=== PATIENT | female | born 1970 | race Caucasian/White ===

== ENCOUNTER 2016-05-27 18:05 | Emergency (ER) | payer OTHER ==
[~2016-05-27] VITALS: Ht 172.7 cm; Wt 124.5 kg
[~2016-05-27 18:05] MED LIST: ABILIFY 15MG TA15 MG PO; BUSPAR DIVIDOSE15 MG PO; CYMBALTA 60MG60 MG PO; DESYREL 50MG50 MG PO; DILAUDID 2MG TAB2 MG PO; EFFEXOR100 MG PO; NAPROSYN500 MG PO; NEURONTIN300 MG/CAP PO; NEURONTIN600 MG/TAB PO; NORCO 325 MG-51 TAB PO; PRISTIQ 50 MG T50 MG PO; VALIUM 5MG T5 MG/TAB PO; ZOFRAN 4MG T4 MG/TAB PO
[2016-05-27 18:09] VITALS: TEMP 97.7
[2016-05-27 22:27] VITALS: BP 118/86; PULSE 66
[2016-05-27] MEDS ORDERED: PROAIR HFA0.09 MG/AC IH (22:31)
[2016-05-27] MEDS ORDERED: GEODON 20 MG20 MG PO (22:31)
[2016-05-27] MEDS ORDERED: COLACE 100100 MG/CAP PO (22:32)
[2016-05-27] MEDS ORDERED: ADDERALL10 MG PO (22:33)
[2016-05-27] MEDS ORDERED: ULTRAM 50MG TAB50 MG PO (22:33)
[2016-05-27] MEDS ORDERED: VALIUM 5MG T5 MG/TAB PO (22:37)
[2016-08-27] MEDS ORDERED: PRISTIQ100 MG PO (14:20)
[2016-08-28] MEDS ORDERED: FLOVENT 44MCG I13 GM (08:55)
== END 2016-05-27 22:45 | disposition home or self-care (01) ==
LOC: COL.ER 18:05
DX: S29.8XXA Other specified injuries of thorax, initial encounter (principal); S39.82XA Other specified injuries of lower back, initial encounter; W10.8XXA Fall (on) (from) other stairs and steps, initial encounter; Y92.098 Other place in other non-institutional residence as the place of occurrence of the external cause; Z90.710 Acquired absence of both cervix and uterus
CPT/HCPCS: J1170; J3360

== ENCOUNTER → 2016-08-27 | Outpatient (CLI) | payer OTHER ==
[~2016-08-27] VITALS: Ht 170.2 cm; Wt 111.4 kg
[~2016-08-27] MED LIST changes: +ADDERALL10 MG PO; +COLACE 100100 MG/CAP PO; +FLOVENT 44MCG I13 GM; +GEODON 20 MG20 MG PO; +PRISTIQ100 MG PO; +PROAIR HFA0.09 MG/AC IH; +ULTRAM 50MG TAB50 MG PO; +VALIUM 2MG T2 MG/TAB PO
[2016-08-27 14:23] VITALS: BP 136/90; PULSE 82
== END ==
LOC: LIGHT 07-16 13:06
DX: E66.01 Morbid (severe) obesity due to excess calories (principal); Z68.38 Body mass index [BMI] 38.0-38.9, adult; M54.89 Other dorsalgia; G47.30 Sleep apnea, unspecified; F33.9 Major depressive disorder, recurrent, unspecified; Z98.84 Bariatric surgery status

== ENCOUNTER 2016-10-06 05:01 | Emergency (ER) | payer OTHER ==
[~2016-10-06] VITALS: Ht 170.2 cm; Wt 113.6 kg
[~2016-10-06 05:01] MED LIST changes: -VALIUM 2MG T2 MG/TAB PO
[2016-10-06 05:03] VITALS: TEMP 98
[2016-10-06] MEDS ORDERED: VALIUM 2MG T2 MG/TAB PO (05:33)
[2016-10-06] MEDS ORDERED: ULTRAM 50MG TAB50 MG PO (05:33)
[2016-10-06 06:10] VITALS: BP 110/59; PULSE 57
== END 2016-10-06 06:25 | disposition home or self-care (01) ==
LOC: COL.ER 05:01
DX: M54.5 Low back pain (principal); F90.9 Attention-deficit hyperactivity disorder, unspecified type; F32.9 Major depressive disorder, single episode, unspecified; Z98.84 Bariatric surgery status
CPT/HCPCS: J1170; J1885

== ENCOUNTER 2016-11-27 22:15 | Emergency (ER) | payer OTHER ==
[~2016-11-27] VITALS: Ht 170.2 cm; Wt 111.4 kg
[~2016-11-27 22:15] MED LIST changes: +VALIUM 2MG T2 MG/TAB PO
[2016-11-27 22:20] VITALS: TEMP 97.8
[2016-11-28 00:09] VITALS: BP 108/73; PULSE 71
== END 2016-11-28 00:11 | disposition home or self-care (01) ==
LOC: COL.ER 22:15
DX: M54.5 Low back pain (principal); G89.29 Other chronic pain; R20.0 Anesthesia of skin; R26.2 Difficulty in walking, not elsewhere classified
CPT/HCPCS: J1170; J1885; J2405

== ENCOUNTER 2017-04-13 21:43 | Emergency (ER) | payer OTHER ==
[~2017-04-13] VITALS: Ht 170.2 cm; Wt 112.3 kg
[2017-04-13 21:43] VITALS: BP 135/70; PULSE 82; TEMP 97.3
== END 2017-04-13 22:55 | disposition left against medical advice (07) ==
LOC: COL.ER 21:43
DX: M62.830 Muscle spasm of back (principal); F32.9 Major depressive disorder, single episode, unspecified; F41.9 Anxiety disorder, unspecified; G47.419 Narcolepsy without cataplexy; M54.5 Low back pain; G89.29 Other chronic pain; F17.210 Nicotine dependence, cigarettes, uncomplicated; Z79.891 Long term (current) use of opiate analgesic
CPT/HCPCS: J1170; J1885; J2405

== ENCOUNTER 2017-04-13 23:28 | Emergency (ER) | payer OTHER ==
[~2017-04-13] VITALS: Ht 170.2 cm; Wt 112.3 kg
[2017-04-13 23:36] VITALS: BP 126/61; TEMP 97.6
[2017-04-14 01:01] VITALS: PULSE 72
== END 2017-04-14 01:00 | disposition home or self-care (01) ==
LOC: COL.ER 23:28
DX: M62.830 Muscle spasm of back (principal); M54.5 Low back pain; F41.9 Anxiety disorder, unspecified; F32.9 Major depressive disorder, single episode, unspecified; F17.210 Nicotine dependence, cigarettes, uncomplicated
CPT/HCPCS: J2360

== ENCOUNTER 2017-05-23 08:03 | Emergency (ER) | payer OTHER ==
[~2017-05-23] VITALS: Ht 170.2 cm; Wt 112.3 kg
[2017-05-23 08:07] VITALS: TEMP 98.5
[2017-05-23 09:44] VITALS: BP 115/75; PULSE 83
[2017-05-23] MEDS ORDERED: AMOXICILLIN875 MG PO (20:10)
[2017-05-23] MEDS ORDERED: OMNICEF 300MG300 MG PO (22:19)
== END 2017-05-23 09:50 | disposition home or self-care (01) ==
LOC: COL.ER 08:03
DX: M54.5 Low back pain (principal); M54.16 Radiculopathy, lumbar region; F17.210 Nicotine dependence, cigarettes, uncomplicated
CPT/HCPCS: J1170; J1200; J1885

== ENCOUNTER 2017-05-23 17:58 | Emergency (ER) | payer OTHER ==
[~2017-05-23] VITALS: Ht 170.2 cm; Wt 112.3 kg
[2017-05-23 18:01] VITALS: TEMP 97.8
[2017-05-23] MEDS ORDERED: AMOXICILLIN875 MG PO (20:10)
[2017-05-23 21:45] LABS: COLLECTION METHOD CLEAN CATCH
[2017-05-23 21:51] LABS: MUCOUS Present /lpf; PH 5 (5-8); SQUAMOUS EPITHELIAL 0-2 /hpf; URINE APPEARANCE Hazy; URINE BACTERIA None Seen /hpf; URINE BILIRUBIN Negative (NEGATIVE); URINE BLOOD Negative (NEGATIVE); URINE COLOR Yellow; URINE GLUCOSE Negative (NEGATIVE); URINE KETONE Negative (NEGATIVE); URINE LEUKOCYTE ESTERASE Trace (NEGATIVE); URINE NITRATE Negative (NEGATIVE); URINE PROTEIN(semi-quant) Negative (NEGATIVE); URINE RBC 0-2 /hpf; URINE UROBILINOGEN Negative (NEGATIVE)
[2017-05-23] MEDS ORDERED: OMNICEF 300MG300 MG PO (22:19)
[2017-05-23 22:56] VITALS: BP 105/71; PULSE 64
== END 2017-05-23 22:56 | disposition home or self-care (01) ==
LOC: COL.ER 17:58
PROVIDERS: Emergency Medicine
DX: N39.0 Urinary tract infection, site not specified (principal)
CPT/HCPCS: J1170; J1630; J2060; J2405

== ENCOUNTER 2017-06-07 19:41 | Emergency (ER) | payer OTHER ==
[~2017-06-07] VITALS: Ht 170.2 cm; Wt 116.8 kg
[~2017-06-07 19:41] MED LIST changes: +AMOXICILLIN875 MG PO; +OMNICEF 300MG300 MG PO
[2017-06-07 19:49] VITALS: BP 107/74; TEMP 98.5
[2017-06-07] MEDS ORDERED: TAMIFLU 75MG75 MG PO (22:02)
[2017-06-07 22:11] VITALS: PULSE 78
== END 2017-06-07 22:11 | disposition home or self-care (01) ==
LOC: COL.ER 19:41
DX: J11.1 Influenza due to unidentified influenza virus with other respiratory manifestations (principal); G89.29 Other chronic pain; M54.9 Dorsalgia, unspecified; F32.9 Major depressive disorder, single episode, unspecified; F41.9 Anxiety disorder, unspecified; F17.210 Nicotine dependence, cigarettes, uncomplicated; Z79.51 Long term (current) use of inhaled steroids

== ENCOUNTER 2017-09-11 08:30 | Emergency (ER) | payer OTHER ==
[~2017-09-11] VITALS: Ht 170.2 cm; Wt 121.2 kg
[~2017-09-11 08:30] MED LIST changes: +TAMIFLU 75MG75 MG PO
[2017-09-11 08:35] VITALS: BP 147/72; PULSE 64; TEMP 96.9
[2017-09-11] MEDS ORDERED: MOBIC 7.5MG7.5 MG PO (09:57)
== END 2017-09-11 10:29 | disposition home or self-care (01) ==
LOC: COL.ER 08:30
DX: S63.502A Unspecified sprain of left wrist, initial encounter (principal); S90.414A Abrasion, right lesser toe(s), initial encounter; F17.210 Nicotine dependence, cigarettes, uncomplicated; Z79.51 Long term (current) use of inhaled steroids; W19.XXXA Unspecified fall, initial encounter; Y92.89 Other specified places as the place of occurrence of the external cause; Y99.0 Civilian activity done for income or pay

== ENCOUNTER 2018-09-24 04:07 | Emergency (ER) | payer OTHER ==
[~2018-09-24] VITALS: Ht 172.7 cm; Wt 133.6 kg
[~2018-09-24 04:07] MED LIST changes: +MOBIC 7.5MG7.5 MG PO
[2018-09-24 04:12] VITALS: TEMP 97.2
[2018-09-24 05:13] LABS: BASO # 0.1 (0.0-0.2); BASO % 0.8 % (0.0-2.0); EOS # 0.2 (0.0-0.7); EOS % 3.7 % (0-4.0); GRAN # 3.2 (1.4-6.5); GRAN % 49.5 % (42.2-75.2); HEMOGLOBIN 11.6 g/dl (12.5-16.0); LYMPH # 2.4 (1.2-3.4); LYMPH % 37.2 % (20.0-51.0); MEAN CELL VOLUME 88 fl (80.0-100.0); MEAN CORPUSCULAR HEMOGLOBIN 29 pg (27.0-31.0); MEAN CORPUSCULAR HGB CONC 33 g/dl (33.0-37.0); MEAN PLATELET VOLUME 8.6 fl (7.4-10.4); MONO # 0.6 (0.1-0.6); MONO % 8.6 % (1.7-9.3); PLATELET COUNT 254 K/mm3 (130-400); RED BLOOD COUNT 3.95 M/mm3 (4.10-5.30); REDCELL DISTRIBUTION WIDTH-CV 13.2 % (11.5-14.5)
[2018-09-24 05:15] LABS: HEMATOCRIT 34.8 % (37.0-47.0)
[2018-09-24 05:25] LABS: ALBUMIN 3.6 gm/dL (3.5-5.0); BILIRUBIN,TOTAL 0.3 mg/dL (0.0-1.0); CALCIUM 9.4 mg/dL (8.4-10.2); CREATININE, serum 0.87 (0.52-1.25); POTASSIUM 3.9 mmol/L (3.4-5.0); TOTAL PROTEIN 6.8 gm/dL (6.4-8.2)
[2018-09-24] MEDS ORDERED: ROBAXIN 50500 MG/TAB PO (05:45)
[2018-09-24] MEDS ORDERED: NORCO 325 MG-51 TAB PO (07:29)
[2018-09-24] MEDS ORDERED: LASIX 20MG TABL20 MG PO (07:31)
[2018-09-24 08:29] VITALS: BP 136/89; PULSE 60
== END 2018-09-24 08:33 | disposition home or self-care (01) ==
LOC: COL.ER 04:07
PROVIDERS: Emergency Medicine
DX: M54.10 Radiculopathy, site unspecified (principal); M54.5 Low back pain; F41.9 Anxiety disorder, unspecified; E66.9 Obesity, unspecified; W10.9XXA Fall (on) (from) unspecified stairs and steps, initial encounter; F17.210 Nicotine dependence, cigarettes, uncomplicated
CPT/HCPCS: J1885; J2270

== ENCOUNTER 2018-12-31 02:30 | Emergency (ER) | payer OTHER ==
[~2018-12-31] VITALS: Ht 172.7 cm; Wt 128.6 kg
[~2018-12-31 02:30] MED LIST changes: +LASIX 20MG TABL20 MG PO; +ROBAXIN 50500 MG/TAB PO
[2018-12-31 03:04] VITALS: TEMP 97.6
[2018-12-31 07:01] VITALS: BP 128/90; PULSE 71
[2019-01-01] MEDS ORDERED: CELEBREX50 MG PO (11:20)
[2019-01-01] MEDS ORDERED: VALTREX1 GM PO (12:50)
[2019-01-01] MEDS ORDERED: VALIUM 5MG T5 MG/TAB PO (12:50)
== END 2018-12-31 07:01 | disposition home or self-care (01) ==
LOC: COL.ER 02:30
DX: M54.5 Low back pain (principal); G89.29 Other chronic pain; G62.9 Polyneuropathy, unspecified; F17.210 Nicotine dependence, cigarettes, uncomplicated; Z79.891 Long term (current) use of opiate analgesic; Z98.890 Other specified postprocedural states
CPT/HCPCS: J1170; J1885

== ENCOUNTER 2019-01-01 10:46 | Emergency (ER) | payer OTHER ==
[~2019-01-01] VITALS: Ht 172.7 cm; Wt 129.1 kg
[2019-01-01 11:07] LABS: COLLECTION METHOD CLEAN CATCH
[2019-01-01 11:14] LABS: MUCOUS Present /lpf; PH 5 (5-8); SQUAMOUS EPITHELIAL 0-2 /hpf; URINE APPEARANCE Clear; URINE BACTERIA Rare /hpf; URINE BILIRUBIN Negative (NEGATIVE); URINE BLOOD Negative (NEGATIVE); URINE COLOR Yellow; URINE GLUCOSE Negative (NEGATIVE); URINE KETONE Negative (NEGATIVE); URINE LEUKOCYTE ESTERASE Negative (NEGATIVE); URINE NITRATE Negative (NEGATIVE); URINE PROTEIN(semi-quant) Negative (NEGATIVE); URINE RBC 0-2 /hpf; URINE UROBILINOGEN Negative (NEGATIVE)
[2019-01-01] MEDS ORDERED: CELEBREX50 MG PO (11:20)
[2019-01-01] MEDS ORDERED: VALIUM 5MG T5 MG/TAB PO (12:50)
[2019-01-01] MEDS ORDERED: VALTREX1 GM PO (12:50)
[2019-01-01 13:10] VITALS: BP 129/87; PULSE 78; TEMP 97
== END 2019-01-01 13:10 | disposition home or self-care (01) ==
LOC: COL.ER 10:46
PROVIDERS: Physician Assistant
DX: S39.012A Strain of muscle, fascia and tendon of lower back, initial encounter (principal); M54.42 Lumbago with sciatica, left side; F17.210 Nicotine dependence, cigarettes, uncomplicated; F41.9 Anxiety disorder, unspecified; G62.9 Polyneuropathy, unspecified; F32.9 Major depressive disorder, single episode, unspecified; Z90.49 Acquired absence of other specified parts of digestive tract; Z90.710 Acquired absence of both cervix and uterus; Z88.5 Allergy status to narcotic agent; Z88.6 Allergy status to analgesic agent; X58.XXXA Exposure to other specified factors, initial encounter
CPT/HCPCS: J1170; J3360

== ENCOUNTER 2020-01-23 09:52 | Emergency (ER) | payer OTHER ==
[~2020-01-23] VITALS: Ht 172.7 cm; Wt 113.6 kg
[~2020-01-23 09:52] MED LIST changes: +CELEBREX50 MG PO; +VALTREX1 GM PO
[2020-01-23 10:11] VITALS: TEMP 97.3
[2020-01-23] MEDS ORDERED: EFFEXOR-XR150 MG PO (10:29)
[2020-01-23] MEDS ORDERED: NUVIGIL150 MG (10:31)
[2020-01-23] MEDS ORDERED: LUVOX 50MG50 MG/TAB PO (10:32)
[2020-01-23] MEDS ORDERED: AMOXICILLIN 8751 TAB PO (11:13)
[2020-01-23] MEDS ORDERED: NORCO 325 MG-51 TAB PO (11:13)
[2020-01-23 11:28] VITALS: BP 123/81; PULSE 82
== END 2020-01-23 11:28 | disposition home or self-care (01) ==
LOC: COL.ER 09:52
DX: R22.0 Localized swelling, mass and lump, head (principal); R68.84 Jaw pain; F17.210 Nicotine dependence, cigarettes, uncomplicated; Z98.818 Other dental procedure status; Z88.6 Allergy status to analgesic agent; Z88.8 Allergy status to other drugs, medicaments and biological substances

== ENCOUNTER 2020-09-04 19:53 | Emergency (ER) | payer OTHER ==
[~2020-09-04] VITALS: Ht 172.7 cm; Wt 133.2 kg
[~2020-09-04 19:53] MED LIST changes: +AMOXICILLIN 8751 TAB PO; +EFFEXOR-XR150 MG PO; +LUVOX 50MG50 MG/TAB PO; +NUVIGIL150 MG
[2020-09-04 20:35] LABS: BASO # 0.1 (0.0-0.2); BASO % 0.8 % (0.0-2.0); EOS # 0.3 (0.0-0.7); EOS % 2.8 % (0-4.0); GRAN # 4.8 (1.4-6.5); GRAN % 53.1 % (42.2-75.2); HEMATOCRIT 38.7 % (37.0-47.0); HEMOGLOBIN 12.8 g/dl (12.5-16.0); LYMPH # 3.3 (1.2-3.4); LYMPH % 36.5 % (20.0-51.0); MEAN CELL VOLUME 85 fl (80.0-100.0); MEAN CORPUSCULAR HEMOGLOBIN 28 pg (27.0-31.0); MEAN CORPUSCULAR HGB CONC 33 g/dl (33.0-37.0); MEAN PLATELET VOLUME 8.6 fl (7.4-10.4); MONO # 0.6 (0.1-0.6); MONO % 6.5 % (1.7-9.3); PLATELET COUNT 320 K/mm3 (130-400); RED BLOOD COUNT 4.55 M/mm3 (4.10-5.30); REDCELL DISTRIBUTION WIDTH-CV 12.9 % (11.5-14.5)
[2020-09-04 20:48] LABS: ALANINE AMINOTRANSFERASE 16 U/L (4-34); ALBUMIN 4.1 gm/dL (3.5-5.0); ALKALINE PHOSPHATASE 112 U/L (50-136); ANION GAP 10 mmol/L (7-16); AST,SGOT 21 U/L (15-37); BILIRUBIN,TOTAL < 0.1 mg/dL (0.0-1.0); BLOOD UREA NITROGEN 9 mg/dL (7-17); CALCIUM 8.8 mg/dL (8.4-10.2); CARBON DIOXIDE 22 mmol/L (22-30); CHLORIDE 104 mmol/L (98-107); CREATININE, serum 0.77 (0.52-1.25); GLUCOSE 109 mg/dL (74-106); LIPASE 87 U/L (23-300); POTASSIUM 3.8 mmol/L (3.4-5.0); SODIUM 136 mmol/L (137-145); TOTAL PROTEIN 7.8 gm/dL (6.4-8.2)
[2020-09-04 21:01] LABS: TROPONIN-I < 0.012 ng/mL (0.000-0.035)
[2020-09-04 21:21] LABS: COLLECTION METHOD CLEAN CATCH
[2020-09-04 21:33] LABS: MUCOUS Present /lpf; PH 5 (5-8); URINE APPEARANCE Hazy; URINE BACTERIA Rare /hpf; URINE BILIRUBIN Negative (NEGATIVE); URINE BLOOD Negative (NEGATIVE); URINE COLOR Yellow; URINE GLUCOSE Negative (NEGATIVE); URINE KETONE Negative (NEGATIVE); URINE LEUKOCYTE ESTERASE Negative (NEGATIVE); URINE NITRATE Negative (NEGATIVE); URINE PROTEIN(semi-quant) Negative (NEGATIVE); URINE RBC 0-2 /hpf; URINE UROBILINOGEN Negative (NEGATIVE)
[2020-09-04] MEDS ORDERED: PEPCID 20MG TAB20 MG PO (22:21)
[2020-09-04] MEDS ORDERED: BENTYL 10MG10 MG/CAP PO (22:21)
[2020-09-04 22:50] VITALS: BP 122/77; PULSE 89; TEMP 97.6
== END 2020-09-04 22:50 | disposition home or self-care (01) ==
LOC: COL.ER 19:53
PROVIDERS: Emergency Medicine
DX: R10.12 Left upper quadrant pain (principal); G89.29 Other chronic pain; M54.5 Low back pain; E66.9 Obesity, unspecified; F41.9 Anxiety disorder, unspecified; F17.210 Nicotine dependence, cigarettes, uncomplicated; Z88.8 Allergy status to other drugs, medicaments and biological substances; Z88.6 Allergy status to analgesic agent
CPT/HCPCS: J0500; J3010; Q9967

== ENCOUNTER 2021-12-31 11:25 | Emergency (ER) | payer OTHER ==
[~2021-12-31] VITALS: Ht 172.7 cm; Wt 145.5 kg
[~2021-12-31 11:25] MED LIST changes: +BENTYL 10MG10 MG/CAP PO; +PEPCID 20MG TAB20 MG PO
[2021-12-31 11:35] VITALS: TEMP 97.9
[2021-12-31 12:02] LABS: BASO # 0.1 K/mm3 (0.0-0.2); BASO % 0.7 % (0.0-2.0); EOS # 0.3 K/mm3 (0.0-0.7); EOS % 3.8 % (0.0-4.0); GRAN # 5.2 K/mm3 (1.4-6.5); GRAN % 58.6 % (42.2-75.2); HEMATOCRIT 39.3 % (37.0-47.0); LYMPH # 2.8 K/mm3 (1.2-3.4); LYMPH % 31.2 % (20.0-51.0); MEAN CELL VOLUME 85 fl (80.0-100.0); MEAN CORPUSCULAR HEMOGLOBIN 28 pg (27-31); MEAN CORPUSCULAR HGB CONC 33 g/dl (33.0-37.0); MEAN PLATELET VOLUME 8.9 fl (7.4-10.4); MONO # 0.5 K/mm3 (0.1-0.6); MONO % 5.5 % (1.7-9.3); PLATELET COUNT 320 K/mm3 (130-400); RED BLOOD COUNT 4.61 M/mm3 (4.10-5.30); REDCELL DISTRIBUTION WIDTH-CV 13.4 % (11.5-14.5)
[2021-12-31 12:29] LABS: ALANINE AMINOTRANSFERASE 23 U/L (0-55); ALBUMIN 3.6 gm/dL (3.5-5.0); ALKALINE PHOSPHATASE 108 U/L (40-150); ANION GAP 13 mmol/L (7-16); AST,SGOT 17 U/L (5-34); BILIRUBIN,TOTAL 0.3 mg/dL (0.2-1.2); BLOOD UREA NITROGEN 9 mg/dL (10-20); CALCIUM 9.4 mg/dL (8.4-10.2); CARBON DIOXIDE 19 mmol/L (22-29); CHLORIDE 109 mmol/L (98-107); CREATININE, serum 0.85 mg/dL (0.57-1.11); GLUCOSE 115 mg/dL (70-99); LIPASE 20 U/L (8-78); POTASSIUM 3.9 mmol/L (3.5-4.5); SODIUM 141 mmol/L (136-145); TOTAL PROTEIN 7.5 gm/dL (6.2-8.1)
[2021-12-31 12:38] LABS: TROPONIN-I < 0.010 ng/mL (0.00-0.033)
[2021-12-31 15:50] VITALS: BP 130/64; PULSE 80
== END 2021-12-31 15:55 | disposition home or self-care (01) ==
LOC: COL.ER 11:25
PROVIDERS: Personal Emergency Response Attendant
DX: R07.2 Precordial pain (principal); R10.9 Unspecified abdominal pain; F41.9 Anxiety disorder, unspecified; F17.210 Nicotine dependence, cigarettes, uncomplicated; Z90.49 Acquired absence of other specified parts of digestive tract; Z98.84 Bariatric surgery status; Z88.5 Allergy status to narcotic agent; Z28.310 Unvaccinated for COVID-19
CPT/HCPCS: C9113; J2060; J2270; J2405; J2704; Q9967